=== PATIENT | male | born 1985 | race Caucasian/White ===

== ENCOUNTER 2023-02-05 17:25 | Emergency (ER) | payer OTHER ==
[~2023-02-05] VITALS: Ht 172.7 cm; Wt 79.4 kg
== END 2023-02-05 21:16 | disposition home or self-care (01) ==
LOC: ED 17:25
DX: S62.396A Other fracture of fifth metacarpal bone, right hand, initial encounter for closed fracture (principal); W22.8XXA Striking against or struck by other objects, initial encounter; Y93.89 Activity, other specified; Y92.89 Other specified places as the place of occurrence of the external cause; Y99.8 Other external cause status